=== PATIENT | male | born 1985 ===

== ENCOUNTER 2016-12-25 10:17 | Outpatient (CLI) | payer OTHER ==
--- NOTE | 2016-12-25 11:50 | XRay Report ---
XRAY LEFT KNEE FOUR VIEWS: 12/25/16 10:17:00 CLINICAL: Knee pain. FINDINGS: No fracture or dislocation. The joint spaces are normal. No joint effusion. Normal soft tissues. A linear radiopaque object is identified in the soft tissues lateral to the femur on AP and oblique views but it is not identified on the lateral view. IMPRESSION: Normal knee
== END 2016-12-25 10:18 | disposition home or self-care (01) ==
LOC: SPVIMAG 10:17
PROVIDERS: ATTEND Orthopaedic Surgery
DX: M25.562 Pain in left knee (principal)